=== PATIENT | male | born 1965 ===

== ENCOUNTER → 2018-11-06 | Outpatient (CLI) | payer OTHER ==
[~2018-11-06] MED LIST: LEVAQUIN750 MG PO
== END | disposition home or self-care (01) ==
LOC: NUCLEAR 07:00
DX: I11.9 Hypertensive heart disease without heart failure (principal); E78.2 Mixed hyperlipidemia; I20.9 Angina pectoris, unspecified
CPT/HCPCS: 78452; 93017; A9500